=== PATIENT | female | born 2000 | race Caucasian/White ===

== ENCOUNTER 2022-07-12 08:31 | Outpatient (CLI) | payer SELFPAY | END 2022-07-12 08:32 | disposition home or self-care (01) | PROVIDERS: PCP Family Medicine; Visit Provider Family Medicine | DX: Z01.419 Encounter for gynecological examination (general) (routine) without abnormal findings (principal); Z13.1 Encounter for screening for diabetes mellitus; Z13.6 Encounter for screening for cardiovascular disorders | CPT/HCPCS: 80061; 82947 ==

== ENCOUNTER 2023-09-19 09:09 | Outpatient (CLI) | payer BC, SELFPAY ==
--- OUTSIDE RECORDS SUMMARY | 2023-09-19 09:11 | XMS_ITS | Clinical Summary ---
Author Organization [place] Address [address] [place] [address] Care Team Providers Care Reel Fed Printer Name Role Phone [facility] Primary Care Provider Radha Crain APRN DOCTORATE OF CHIROPRACTIC Unavailable Allergies No known active allergies Medications Medication Sig Dispensed Refills Start Date End Date Status Cetirizine HCl (ZYRTEC ALLERGY PO) Active acyclovir (ZOVIRAX) 200 MG capsule Take 200 mg by mouth every 12 hours Active norgestimate-ethinyl estradiol (ESTARYLLA) 0.25-35 MG-MCG tabletIndications:Encou nter for gynecological examination without abnormal finding TAKE 1 TABLET BY MOUTH DAILY 84 tablet 08/13/2023 Active Active Problems Problem Noted Date Diagnosed Date Onychomycosis 07/10/2016 Ankle sprain 04/09/2012 Abnormal gait 04/09/2012 Encounters Date Type Department Care Team Description 08/13/2023 MyC Medical Advice [facility] for [address] [phone] Rita Patel RN 08/13/2023 Refill M [address] [phone] Radha Crain APRN DOCTORATE OF CHIROPRACTIC Medication Refill 08/08/2023 MyC Medical Advice [address] [phone] Radha Crain APRN CNP 08/06/2023 8:45 AM CDT Lab [address] [place] [phone] Radha Crain APRN CNP Screening for tuberculosis 08/06/2023 Travel 07/31/2023 Telephone [place] [address] [place], [place] [phone] Radha Crain APRN CNP Patient Request 07/30/2023 MyC Medical Advice [place] [address] [place], [place] [phone] Radha Crain APRN CNP MyChart Communication 07/30/2023 Telephone [place] [address] [place] [phone] Radha Crain APRN CNP Forms from Last 3 Months Immunizations Name Administration Dates Next Due COVID-19 Monovalent Booster 18+ [facility] 02/18/2021 COVID-19 Vaccine (Dom) 07/08/2020 DTAP (<7y) 11/24/2003,10/18/1999 HEPATITIS A (PEDS 12M-18Y) 10/28/2013,11/05/2012 HPV Quadrivalent 10/28/2013,01/06/2013, 3 Hepatitis B, Peds 03/08/1999, 9,1998,05/11 Historical DTP/aP 1998,1998,05/11/18 99 MMR 11/24/2003,03/08/1999 Meningococcal ACWY (Menactra??) 11/05/2012 Meningococcal Mcv4 Conjugate,unspecified 05/10/2016 Pneumococcal (PCV 7) 03/19/2000,10/18/1999 Poliovirus, inactivated (IPV) 11/24/2003 ,1998,1998,05/11 TDAP (Adacel,Boostrix) 07/04/2022 TDAP Vaccine (Adacel) 01/04/2010 TDAP Vaccine (Boostrix) 05/10/2016 Varicella 01/01/2008,03/08/1999 Family History Medical History Relation Comments Hyperlipidemia Father Thyroid Disease Other Colon Cancer Paternal Grandfather Hyperlipidemia Paternal Grandfather Hyperlipidemia Paternal Grandmother Osteoporosis Paternal Grandmother Thyroid Disease Sister 1 Relation Status Comments Father Alive Maternal Grandfather Alive Maternal Grandmother Alive Mother Alive Other Paternal Grandfather Paternal Grandmother Sister 1 Alive Sister 2 Alive Social History Tobacco Use Types Packs/Day Years Used Date Smoking Tobacco: Never Smokeless Tobacco: Never Tobacco Cessation:Counseling Given: Not Answered Alcohol Use Standard Drinks/Week Comments No 0 (1 standard drink = 0.6 oz pur e alcohol) PHQ-2 Answer Date Recorded PHQ-2 Score 0 07/04/2022 Adolescent Education Answer Date Record ed Getting School Help Needed Not on file 01/15 Sex and Gender Information Value Date Recorded Sex Assigned at Female 07/03/2022 9:28 AM CDT Gender Identity Female 07/03/2022 9:28 AM CDT Sexual Orientation Straight 07/03/2022 9: 28 AM CDT Last Filed Vital Signs Vital Sign Reading Time Taken Comments Blood Pressure 118/62 07/04/2022 8:56 AM CDT Pulse 72 03/29/2020 2:51 PM MANGLE CATCHER Temperature - - Respiratory Rate - - Oxygen Saturation - - Inhaled Oxygen Concentration - - Weight 65.6 kg (144 lb 9.6 oz) 07/04/2022 8:56 A M CDT Height 163.8 cm (5' 4.5) 07/04/2022 8:56 AM CDT Body Mass Index 24.44 07/04/2022 8:56 AM CDT Plan of Treatment Health Maintenance Due Date Last Done Comments ADVANCE CARE PLANNING 1998 ANNUAL REVIEW OF HM ORDERS 1998 PHQ-2 (once per calendar year) 2023 07/04/2022, 07/04/2022, 04/04/2021, Additional history exists YEARLY PREVENTIVE VISIT 07/05/2023 07/05/19, 04/04/2021, 03/29/2020, Additional history exists PAP 07/04/2025 07/04/2022, 03/29/2020 DTAP/TDAP/TD IMMUNIZATION (9 - Td or Tdap) 07/04/2032 07/04/2022, 05/10/2016, 01/04/2010, Additional history exists HEPATITIS B IMMUNIZATION Completed 999, 1998, 1998, Additional history exists Pneumococcal Vaccine: Pediatrics (0 to 5 Years) and At-Risk Patients (6 to 64 Years) Aged Out 03/19/2000, 10/18/1999 No longer eligibl e based on patient's age to complete this topic IPV IMMUNIZATION Completed 11/24/2003, 05/1998, 1998, Additional history exists HPV IMMUNIZATION Completed 10/28/2013, 09/2012, 11/05/2012 MENINGITIS IMMUNIZATION Completed 05/10/2016, 11/05 CHLAMYDIA SCREENING Discontinued 07/04/2022, HEPATITIS C SCREENING Completed 07/04/2022 HIV SCREENING Completed 07/04/2022 COVID-19 Vaccine Completed 01/11/2023, , 07/08/2020 INFLUENZA VACCINE Completed 02/28/2023, 07/12/2022 RSV MONOCLONAL ANTIBODY Aged Out No l onger eligible based on patient's age to complete this topic Procedures Procedure Name Priority Date/Time Associated Diagnosis Comments QUANTIFERON-TB GOLD PLUS Routine 08/06/2023 9:02 AM CDT Screening for tuberculosis QUANTIFERON TB GOLD PLUS Routine 08/06/2023 9:02 AM CDT Screening for tuberculosis QUANTIFERON TB GOLD PLUS PURPLE TUBE Routine 08/06/2023 9:02 AM CDT Screening for tuberculosis QUANTIFERON TB GOLD PLUS YELLOW TUBE Routine 08/06/2023 9:02 AM CDT Screening for tuberculosis QUANTIFERON TB GOLD PLUS GREEN TUBE Routine 08/06/2023 9:02 AM CDT Screening for tuberculosis QUANTIFERON TB GOLD PLUS MATHEWS TUBE Routine 08/06/2023 9:02 AM CDT Screening for tuberculosis NEISSERIA GONORRHOEAE PCR Routine 07/04/2022 9:32 AM CDT Screening for STDs (sexually transmitted diseases) HIV ANTIGEN ANTIBODY COMBO Routine 07/04/2022 9:30 AM CDT Screening for HIV (human immunodeficiency virus) HEPATITIS C SCREEN REFLEX TO HCV RNA QUANT AND GENOTYPE Routine 07/04/2022 9:30 AM CDT Need for hepatitis C screening test GYNECOLOGIC CYTOLOGY Routine 07/04/2022 9:14 AM CDT Encntr for automobiles salesperson exam (general) (routine) w/o abn findings from Last 3 Months or Most Recently Relevant to Health Maintenance Results * Quantiferon TB Gold Plus (08/06/2023 9:02 AM CDT) Quantiferon-TB Gold Plus Negative Negative 08/07/2023 1:10 PM CDT [facility]END O Comment: No interferon gamma response to M.tuberculosis antigens was detected. Infection with M.tuberculosis is unlikely, however a single negative result does not exclude infection. In patients at high risk for infection, a second test should be considered in accordance with the 2017 ATS/IDSA/CDC Clinical Pract ice Guidelines for Diagnosis of Tuberculosis in Adults and Children TB1 Ag minus Nil Value 0.00 IU/mL 08/07/2023 1:10 PM CDT [facility]END [facility] TB2 Ag minus Nil Value 0.00 IU/mL 08/07/2023 1:10 PM CDT [facility]END O Mitogen minus Nil Result 9.99 IU/mL 08/07/2023 1:10 PM CDT [facility] C[facility]/PROT/END O Nil Result 0.01 IU/mL 08/07/2023 1:10 PM CDT SPECIALTY CORE/PROT/END O Blood BLOOD SPECIMEN / Unknown Venipuncture / Unknown 08/06/2023 9:02 AM CDT 08/06/2023 9:02 AM CDT Radha Crain APRN DOCTORATE OF CHIROPRACTIC LAB - MICRO G ENERAL ORDERABLES [facility]/PROT/ENDO [facility] Specialty Core/Prot/Endo [address] [facility] [address] [facility], [address] [place] [address] * Quantiferon TB Gold Plus Purple Tube (08/06/2023 9:02 AM CDT) Quantiferon Mitogen 10.00 IU/mL 08/07/2023 1:00 PM CDT SPECIALTY CORE/PROT/ENDO Blood BLOOD SPECIMEN / Unknown Venipuncture / Unknown 08/06/2023 9:02 AM CDT 08/06/2023 9:02 AM CDT Radha Crain HUSSAIN DOCTORATE OF CHIROPRACTIC LAB - MICRO G ENERAL ORDERABLES Performing Organization Address City/[facility]/ZIP Co de Phone Number SPECIALTY CORE/PROT/ENDO Specialty Core/Prot/Endo [address] [facility], [address] [place] [address] * Quantiferon TB Gold Plus Yellow Tube (08/06/2023 9:02 AM CDT) Quantiferon TB2 Tube 0.01 08/07/2023 1:00 PM CDT SPECIALTY CORE/PROT/ENDO Blood BLOOD SPECIMEN / Unknown Venipuncture / Unknown 08/06/2023 9:02 AM CDT 08/06/2023 9:02 AM CDT Radha Brownjorgeramirez HUSSAIN DOCTORATE OF CHIROPRACTIC LAB - MICRO G ENERAL ORDERABLES [facility] SPECIALTY CORE/PROT/ENDO Specialty Core/Prot/Endo [address] [facility], [address] * Quantiferon TB Gold Plus Green Tube (08/06/2023 9:02 AM CDT) Quantiferon TB1 Tube 0.01 IU/mL 08/07/2023 12:59 PM CDT SPECIALTY CORE/PROT/ENDO Blood BLOOD SPECIMEN / Unknown Venipuncture / Unknown 08/06/2023 9:02 AM CDT 08/06/2023 9:02 AM CDT Radha Crain HUSSAIN DOCTORATE OF CHIROPRACTIC LAB - MICRO G ENERAL ORDERABLES [facility] SPECIALTY CORE/PROT/ENDO Specialty Core/Prot/Endo [address] [facility], [address] * Quantiferon TB Gold Plus Mathews Tube (08/06/2023 9:02 AM CDT) Quantiferon Nil Tube 0.01 IU/mL 08/07/2023 12:59 PM CDT SPECIALTY CORE/PROT/ENDO Blood BLOOD SPECIMEN / Unknown Venipuncture / Unknown 08/06/2023 9:02 AM CDT 08/06/2023 9:02 AM CDT Radha Brownjorgeramirez STITCHER OPERATOR DOCTORATE OF CHIROPRACTIC LAB - MICRO G ENERAL ORDERABLES Performing Organization Address [facility]/ZIP Co de Phone Number SPECIALTY CORE/PROT/ENDO Specialty Core/Prot/Endo [address] [facility], [address] * NEISSERIA GONORRHOEA PCR (07/04/2022 9:32 AM CDT) Neisseria gonorrhoeae Negative Negative 07/05/2022 12:52 PM CDT [facility] Comment:Negative for N. gono rrhoeae rRNA by senior executive assistant mediated amplification. A negative result by senior executive assistant mediated amplification does not preclude the presence of C. trachomatis infection because results are dependent on proper and adequate collection, absence of inhibitors and sufficient rRNA to be detected. Swab VAGINAL STRUCTURE / Unknown Non-blood Collection / Unknown 07/04/2022 9:32 AM CDT 07/04/2022 12:32 PM CDT Radha Brownmarcus NIXON DOCTORATE OF CHIROPRACTIC LAB - MICRO G ENERAL ORDERABLES [facility] Inf. Diseases Diag. Lab [address] [facility], [address] [place] [address], [facility] [place] [phone] * HIV Antigen Antibody Combo (07/04/2022 9:30 AM CDT) HIV Antigen Antibody Combo Nonreactive Nonreactive 07/05/2022 10:18 AM CDT SPECIALTY CORE/PROT/EN DO Comment:HIV-1 p24 Ag & HIV-1 /HIV-2 Ab Not Detected Blood STRUCTURE OF LEFT UPPER LIMB / Unknown Venipuncture / Unknown 07/04/2022 9:30 AM CDT 07/04/2022 9:39 AM CDT Radha Crain APRN DOCTORATE OF CHIROPRACTIC LAB - BLOOD O RDERABLES UM SPECIALTY CORE/PROT/ENDO UM Specialty Core/Prot/Endo [address] [facility], [address] [place] [address], [facility] [place] [phone] * Hepatitis C Screen Reflex to HCV RNA Quant and Genotype (07/04/2022 9:30 AM CDT) Hepatitis C Antibody Nonreactive Nonreactive 07/05/2022 10:18 AM CDT SPECIALTY CORE/PROT/EN DO Blood STRUCTURE OF LEFT UPPER LIMB / Unknown Venipuncture / Unknown 07/04/2022 9:30 AM CDT 07/04/2022 9:39 AM CDT Narrative [facility] C[facility]/PROT/ENDO - 07/05/2022 10:18 AM CDT Assay performance characteristics have not been established for newborns, infants, and children. Radha Crain APRN DOCTORATE OF CHIROPRACTIC LAB - BLOOD O RDERABLES UM SPECIALTY CORE/PROT/ENDO Specialty Core/Prot/Endo [address] [facility], [address] [place] [address], [facility] [place] [phone] * Pap thin layer screen only - recommended age 21 - 24 years (07/04/2022 9:14 AM CDT) Interpretation Negative for Intraepithelial Lesion or Malignancy (NILM) 07/06/2022 2:38 PM CDT [facility] Comment Papanicolaou Test Limitations: Cervical cytology is a screening test with limited sensitivity, and regular screening is critical for cancer prevention. Pap tests are primarily effective for the diagnosis/prevent ion of squamous cell carcinoma, not adenocarcinoma or other cancers. 07/06/2022 2:38 PM CDT [facility] Specimen Adequacy Satisfactory for evaluation, endocervical/berrios sformation zone component present 07/06/2022 2:38 PM CDT [facility] Clinical Information none 07/06/2022 2:38 PM CDT [facility] Reflex Testing No 07/06/2022 2:38 PM CDT [facility] Previous Abnormal? No 07/06/2022 2:38 PM CDT [facility] Performing Labs The technical component of this testing was completed at [facility] 07/06/2022 2:38 PM CDT [facility] Brushing CERVIX UTERI STRUCTURE / Unknown Non-blood Collection / Unknown 07/04/2022 9:14 AM CDT 07/04/2022 12:32 PM CDT Radha Crain APRN [facility] Specialty Lab [address] [facility] [address], [address] [place] [address], [facility] [place] [phone] from Last 3 Months or Most Recently Relevant to Health Maintenance Care Teams Reel Fed Printer Relationship Specialty Start Date End Date Clinic, [facility] [address] [place] [phone] PCP - General 10/11/17 Radha Crain APRN [facility] [address] [place] [address] Assigned OBGYN Provider 07/08/22
--- OUTSIDE RECORDS SUMMARY | 2023-09-19 09:11 | XMS_ITS | Clinical Summary ---
Author Organization [facility] Address [place], [place] [address] Care Team Providers Care Fringing Machine Operator Name Role Phone Pcp, No Primary Care Provider Unavailabl e Allergies No known active allergies Medications Medication Sig Dispensed Refills Start Date End Date Status COVID-19 antigen test (Flowflex COVID-19 Ag Home Test) kit FOR HOME USE 4 Kit 03/16/2023 Active norgestimate-ethinyl estradiol, 0.25-35 mg-mcg, (Estarylla) 0.25-35 mg-mcg tablet Take 1 Tablet by mouth once daily. Active Sulfacetamide Sodium-Sulfur 10-5 % susp Apply topically to affected area(s) three times daily. Active multivitamin (MVI) tablet Take 1 Tablet by mouth once daily. Active omega-3/dha/epa/ala/v itamin D3 (maija-1-tsn-epa-ala- vit D3) 50 mg (25 mg- 25 mg)-100 unit chew Chew by mouth. Active Encounters Date Type Department Care Team Description 07/10/2023 8:40 AM CDT Office Visit [facility] [address] [facility] [address] [place] [address] Katelyn Hall DPM Follow Up (Follow up on left great toenail removal, procedure done on 06/11/23 ) 07/10/2023 Travel 07/05/2023 Nurse Triage [facility] [address] [place] [address] Chun Blas DPM Post-op Infection (possible) from Last 3 Months Social History Tobacco Use Types Packs/Day Years Used Date Smoking Tobacco: Never Smokeless Tobacco: Never Tobacco Cessation:Counseling Given: Not Answered Alcohol Use Standard Drinks/Week Comments Yes 0 (1 standard drink = 0.6 oz pur e alcohol) Sex and Gender Information Value Date Recorded Sex Assigned at Not on file Gender Identity Not on file Sexual Orientation Not on file Obstetrics History Plan of Treatment Health Maintenance Due Date Last Done Comments Tdap 2009 Depression screening for age 12+ 2010 HIV for age 15-65 2013 HPV series for age 9-26 (1 - 3-dose series) 2013 BMI (ht and wt on same day) for age 18+ 2016 Hepatitis C screening for ag e 18-79 2016 Tetanus booster 2018 Pap test for age 21-65 2019 Influenza for age 9-49 12/02/2023 COVID-19 vaccine series Completed 01/12/20 23, 07/08/2020 Pneumococcal series for age 6-64 Aged Out No longer eligible b ased on patient's age to complete this topic Care Teams Fringing Machine Operator Relationship Specialty Start Date End Date Pcp, No . PCP - General 06/11/23
--- OUTSIDE RECORDS SUMMARY | 2023-09-19 09:12 | XMS_ITS | Encounter Summary ---
Author Organization [facility] Address [address] [place] [address]. [place] [address] Care Team Providers Care Jde Developer Name Role Phone [facility] Primary Care Provider Radha Crain APRN HR MANAGER Unavailable [phone] Reason for Visit * Reason Onset Date Comments MyChart Communication 07/30/2023 Encounter Details Date Type Department Care Team (Latest Contact Info) Description 07/30/2023 MyC Medical Advice [facility] [place] [address] [facility] [employer] [address] [place] [phone] Radha Crain APRN HR MANAGER [address] [facility] [address] [place] [phone] MyChart Communication Social History Tobacco Use Types Packs/Day Years Used Date Smoking Tobacco: Never Smokeless Tobacco: Never Alcohol Use Standard Drinks/Week Comments No 0 [...] Orientation Straight 07/03/2022 9: 28 AM CDT documented as of this encounter Miscellaneous Notes * Telephone Encounter - Strangis, Patsy Robert - 07/30/2023 3:10 PM CDT Sent forms to patient's email. * Telephone Encounter - RomanaeusebioPatsy Robert - 07/30/2023 1:16 PM CDT Put form on providers desk to be completed on 07/30/2023. documented in this encounter Plan of Treatment Not on file documented as of this encounter Visit Diagnoses Not on filedocumented in this encounter Additional Health Concerns Assessment Noted Time PHQ-9 Depression Total Score: 0 07/05/19 9:00 AM CDT documented as of this encounter Care Teams Jde Developer Relationship Specialty Start Date End Date [facility], [facility] [address] [facility] [address] [place] [phone] PCP - General 10/11/17 Radha Crain APRN HR MANAGER [address] [place] [address] Assigned OBGYN Provider 07/08/22 documented as of this encounter
--- OUTSIDE RECORDS SUMMARY | 2023-09-19 09:12 | XMS_ITS | Referral Summary ---
Author Organization [place] Address [address] [place] [address] Care Team Providers Care Ceramic Chemist Name Role Phone [facility] Primary Care Provider Radha Crain APRN INSTRUCTOR INDUSTRIAL DESIGN Unavailable Encounters Date Type Department Care Team Description 08/13/2023 MyC Medical Advice [address] [place] [phone] Rita Patel RN 08/13/[address] [place] [phone] Radha Crain APRN INSTRUCTOR INDUSTRIAL DESIGN Medication Refill 08/08/2023 MyC Medical Advice [address] [place] [phone] Radha Crain APRN CNP 08/06/2023 Travel 08/06/2023 8:45 AM CDT Lab [place] [address] [place] [phone] Radha Crain APRN CNP Screening for tuberculosis 07/31/[address] [place] [phone] Radha Crain APRN CNP Patient Request 07/30/2023 MyC Medical Advice [facility] [address] [place] [phone] Radha Crain APRN CNP MyChart Communication 07/30/2023 Telephone [facility] [address] [place] [address] [address] [place] [phone] Radha Crain APRN CNP Forms from Last 3 Months Allergies No known active allergies Medications Medication [...] 07/10/2016 Ankle sprain 04/09/2012 Abnormal gait 04/09/2012 Immunizations Name Administration Dates Next Due COVID-19 Monovalent Booster 18+ (Moderna) 02/18/2021 COVID-19 Vaccine (Dom) 07/08/2020 DTAP (<7y) 11/24/2003,10/18/1999 HEPATITIS A (PEDS 12M-18Y) 10/28/2013,11/05/2012 HPV Quadrivalent 10/28/2013,01/06/2013, 3 Hepatitis B, Peds 03/08/1999, 9,1998,05/11 Historical DTP/aP 1998,1998,05/11/18 99 MMR 11/24/2003,03/08/1999 Meningococcal ACWY (Menactra??) 11/05/2012 Meningococcal Mcv4 Conjugate,unspecified 05/10/2016 Pneumococcal (PCV 7) 03/19/2000,10/18/1999 Poliovirus, inactivated (IPV) 11/24/2003 ,1998,1998,05/11 TDAP (Adacel,Boostrix) 07/04/2022 TDAP Vaccine (Adacel) 01/04/2010 TDAP Vaccine (Boostrix) 05/10/2016 Varicella 01/01/2008,03/08/1999 Social History Tobacco Use Types Packs/Day Years [...] AM CDT Pulse 72 03/29/2020 2:51 PM CHARGING BOARD OPERATOR Temperature - - Respiratory Rate - - Oxygen Saturation - - Inhaled Oxygen Concentration - - Weight 65.6 kg (144 lb 9.6 oz) 07/04/2022 8:56 A M CDT Height 163.8 cm (5' 4.5) 07/04/2022 8:56 AM CDT Body Mass Index 24.44 07/04/2022 8:56 AM CDT Plan of Treatment Not on file Procedures Procedure Name Priority Date/Time Associated Diagnosis [...] Routine 07/04/2022 9:14 AM CDT Encntr for field care coordinator exam (general) (routine) w/o abn findings from Last 3 Months or Most Recently Relevant to Health Maintenance Results * Quantiferon TB Gold Plus (08/06/2023 9:02 AM CDT) [facility] Quantiferon-TB Gold Plus Negative Negative 08/07/2023 1:10 [...] Result 0.01 IU/mL 08/07/2023 1:10 PM CDT UM SPECIALTY CORE/PROT/END O Blood BLOOD SPECIMEN / Unknown Venipuncture / Unknown 08/06/2023 9:02 AM CDT 08/06/2023 9:02 AM CDT Radha Brownjorgeramirez HUSSAIN INSTRUCTOR INDUSTRIAL DESIGN LAB - MICRO G ENERAL ORDERABLES UM SPECIALTY CORE/PROT/ENDO UM Specialty Core/Prot/Endo [address] [facility] [address] [facility], [address] * Quantiferon TB Gold Plus Purple Tube (08/06/2023 9:02 AM CDT) Quantiferon Mitogen 10.00 IU/mL 08/07/2023 1:00 PM CDT UM SPECIALTY CORE/PROT/ENDO Blood BLOOD SPECIMEN / Unknown Venipuncture / Unknown 08/06/2023 9:02 AM CDT 08/06/2023 9:02 AM CDT Radha Brownmarcus NIXON INSTRUCTOR INDUSTRIAL DESIGN LAB - MICRO G ENERAL ORDERABLES UM SPECIALTY CORE/PROT/ENDO Specialty Core/Prot/Endo 500 [facility], [address] * Quantiferon TB Gold Plus Yellow Tube (08/06/2023 9:02 AM CDT) Quantiferon TB2 Tube 0.01 08/07/2023 1:00 PM CDT UM SPECIALTY CORE/PROT/ENDO Blood BLOOD SPECIMEN / Unknown Venipuncture / Unknown 08/06/2023 9:02 AM CDT 08/06/2023 9:02 AM CDT Radha Brownmarcus NIXON INSTRUCTOR INDUSTRIAL DESIGN LAB - MICRO G ENERAL ORDERABLES UM SPECIALTY CORE/PROT/ENDO UM Specialty Core/Prot/Endo [address] [facility] [address] Building, [address] * Quantiferon TB Gold Plus Green Tube (08/06/2023 9:02 AM CDT) Quantiferon TB1 Tube 0.01 IU/mL 08/07/2023 12:59 PM CDT UM SPECIALTY CORE/PROT/ENDO Blood BLOOD SPECIMEN / Unknown Venipuncture / Unknown 08/06/2023 9:02 AM CDT 08/06/2023 9:02 AM CDT Radha Crain HUSSAIN INSTRUCTOR INDUSTRIAL DESIGN LAB - MICRO G ENERAL ORDERABLES UM SPECIALTY CORE/PROT/ENDO UM Specialty Core/Prot/Endo [address] [facility], [address] * Quantiferon TB Gold Plus Mathews Tube (08/06/2023 9:02 AM CDT) [facility] Quantiferon Nil Tube 0.01 IU/mL 08/07/2023 12:59 PM CDT SPECIALTY CORE/PROT/ENDO Blood BLOOD SPECIMEN / Unknown Venipuncture / Unknown 08/06/2023 9:02 AM CDT 08/06/2023 9:02 AM CDT Radha Crain HUSSAIN INSTRUCTOR INDUSTRIAL DESIGN LAB - MICRO G ENERAL ORDERABLES UM SPECIALTY CORE/PROT/ENDO Specialty Core/Prot/Endo [address] [facility], [address] * NEISSERIA GONORRHOEA PCR (07/04/2022 9:32 AM CDT) [facility] Neisseria gonorrhoeae Negative Negative 07/05/2022 12:52 PM CDT [facility] Comment:Negative for N. gono rrhoeae rRNA by executive vp mediated amplification. A negative result by executive vp mediated amplification does not preclude the presence of C. trachomatis infection because results are dependent on proper and adequate collection, absence of inhibitors and sufficient rRNA to be detected. Swab VAGINAL STRUCTURE / Unknown Non-blood Collection / Unknown 07/04/2022 9:32 AM CDT 07/04/2022 12:32 PM CDT Radha Cardona Paras GAS PLANT OPERATOR INSTRUCTOR INDUSTRIAL DESIGN LAB - MICRO G ENERAL ORDERABLES [facility] Inf. Diseases Diag. Lab 500 [facility], [address] [place] [address], [facility] [phone] * HIV Antigen Antibody Combo (07/04/2022 9:30 AM CDT) HIV Antigen Antibody Combo Nonreactive Nonreactive 07/05/2022 10:18 AM CDT SPECIALTY CORE/PROT/EN DO Comment:HIV-1 p24 Ag & HIV-1 /HIV-2 Ab Not Detected Blood STRUCTURE OF LEFT UPPER LIMB / Unknown Venipuncture / Unknown 07/04/2022 9:30 AM CDT 07/04/2022 9:39 AM CDT Radha Cardona Paras MEDINAN INSTRUCTOR INDUSTRIAL DESIGN LAB - BLOOD O RDERABLES UM SPECIALTY CORE/PROT/ENDO Specialty Core/Prot/Endo 500 [facility], [address] [address], [facility] [phone] * Hepatitis C Screen Reflex to HCV RNA Quant and Genotype (07/04/2022 9:30 AM CDT) Hepatitis C Antibody Nonreactive Nonreactive 07/05/2022 10:18 AM CDT UM SPECIALTY CORE/PROT/EN DO Blood STRUCTURE OF LEFT UPPER LIMB / Unknown Venipuncture / Unknown 07/04/2022 9:30 AM CDT 07/04/2022 9:39 AM CDT Narrative UM SPECIALTY CORE/PROT/ENDO - 07/05/2022 10:18 AM CDT Assay performance characteristics have not been established for newborns, infants, and children. Radha Cardona Paras NIXON INSTRUCTOR INDUSTRIAL DESIGN LAB - BLOOD O RDERABLES UM SPECIALTY CORE/PROT/ENDO UM Specialty Core/Prot/Endo [address] [facility] [address] Building, [address] [place], [place] [address] [phone] * Pap thin layer screen only - [...] component of this testing was completed at [facility] 07/06/2022 2:38 PM CDT SPECIALTY LABS Brushing CERVIX UTERI STRUCTURE / Unknown Non-blood Collection / Unknown 07/04/2022 9:14 AM CDT 07/04/2022 12:32 PM CDT Radha AMOS SPECIALTY LABS UM Specialty Lab [address] [facility], [address] [place] [address], [facility] [phone] from Last 3 Months or Most Recently Relevant to Health Maintenance Care Teams Ceramic Chemist Relationship Specialty Start Date End Date Clinic, [facility] Women [facility] [address] [facility] [address] [place] [phone] PCP - General 10/11/17 Radha Crain APRN [facility] [address] [facility] [address] [place] [address] Assigned OBGYN Provider 07/08/22
--- OUTSIDE RECORDS SUMMARY | 2023-09-19 09:12 | XMS_ITS | Encounter Summary ---
Author Organization [place] Address [address] [place] [address] Care Team Providers Care Cloth Beamer Name Role Phone [facility] Primary Care Provider Erica Parks APRN CNM Unavailable Iesha Chadwick STAGE TECHNICIAN CNM Unavailable Unava ilable Radha Crain STAGE TECHNICIAN AUTO PAINTER HELPER Unavailable Reason for Visit * Reason Comments Medication Refill Encounter Details Date Type Department Care Team (Late st Contact Info) Description 03/23/[address] [facility] [place] [phone] Kecia Pearson MD [address] [place] [address] [place] [address] Medication Refill Social History Tobacco Use Types Packs/Day Years Used Date Smoking Tobacco: Never Assessed Sex and Gender Information Value Date Recorded Sex Assigned at Female 07/03/2022 9:28 AM CDT Gender Identity Female 07/03/2022 9:28 AM CDT Sexual Orientation Straight 07/03/2022 9: 28 AM CDT documented as of this encounter Miscellaneous Notes * Telephone Encounter - Shayy Dennis - 04/22/2013 8:12 AM CST Not seen at [facility] pt. EKEEPING/LAUNDRY SUPERVISOR documented in this encounter Plan of Treatment Not on file documented as of this encounter Visit Diagnoses Not on filedocumented in this encounter Care Teams Cloth Beamer Relationship Specialty Start Date End Date Clinic, [facility] Women [facility] [address] [place] [address] [place] [phone] PCP - General 10/11/17 Erica Parks APRN CNM [facility] [address] [place] [address] [place] [phone] Assigned OBGYN Provider 04/04/20 2 Iesha Chadwick, STAGE TECHNICIAN CNM Assigned OBGYN Provider 04/10/21 07/07/22 Radha Crain APRN AUTO PAINTER HELPER [address] [place] [address] [place] [phone] Assigned OBGYN Provider 07/08/22 documented as of this encounter
--- OUTSIDE RECORDS SUMMARY | 2023-09-19 09:12 | XMS_ITS | Encounter Summary ---
Author Organization [place] Address [address] [place] [address]. [place] [address] Care Team Providers Care Research Methodologist Name Role Phone [facility] Primary Care Provider Radha Crain APRN HAND CULTIVATOR Unavailable [phone] Encounter Details Date Type Department Care Team (Late st Contact Info) Description 08/08/2023 [facility] [address] [facility] 100 [place] [phone] Radha Crain APRN HAND CULTIVATOR [address] [facility] 100 [place] [address] Social History Tobacco Use Types Packs/Day Years [...] encounter Miscellaneous Notes * Telephone Encounter - Risa Easley - 08/09/2023 11:00 AM CDT Forms updated/signed Emailed to patient * Telephone Encounter - Risa Easley - 08/08/2023 12:14 PM CDT Forms printed and given to Radha Mays to update/sign documented in this encounter Plan of Treatment Not on file documented as of this encounter Visit Diagnoses Not on filedocumented in this encounter Additional Health Concerns Assessment Noted Time PHQ-9 Depression Total Score: 0 07/05/19 9:00 AM CDT documented as of this encounter Care Teams Research Methodologist Relationship Specialty Start Date End Date Clinic, [facility] [address] [facility] [address] [place] [place] [phone] PCP - General 10/11/17 Radha Crain APRN HAND CULTIVATOR [address] [place] [address] [place] [place] [address] Assigned OBGYN Provider 07/08/22 documented as of this encounter
--- OUTSIDE RECORDS SUMMARY | 2023-09-19 09:12 | XMS_ITS | Encounter Summary ---
Author Organization [place] Address [address] [place] [address] Care Team Providers Care Graphic Pre Press Trades Worker Name Role Phone [facility] Primary Care Provider Radha Crain APRN YARD CALLER Unavailable [phone] Encounter Details Date Type Department Care Team (Late st Contact Info) Description 08/13/2023 [facility] Medical Advice [facility] [address] [place] [address] 100 [place] [phone] Rita Patel RN Social History Tobacco Use Types Packs/Day Years [...] AM CDT documented as of this encounter Plan of Treatment Not on file documented as of this encounter Visit Diagnoses Not on filedocumented in this encounter Additional Health Concerns Assessment Noted Time PHQ-9 Depression Total Score: 0 07/05/19 9:00 AM CDT documented as of this encounter Care Teams Graphic Pre Press Trades Worker Relationship Specialty Start Date End Date Clinic, [facility] [address] [place] [phone] PCP - General 10/11/17 Radha Crain APRN YARD CALLER [address] [place] [address] Assigned OBGYN Provider 07/08/22 documented as of this encounter
--- OUTSIDE RECORDS SUMMARY | 2023-09-19 09:12 | XMS_ITS | Encounter Summary ---
Author Organization [place] Address [address] [place] [address]. [place] [address] Care Team Providers Care Chro Name Role Phone [facility], [facility] Primary Care Provider Radha Crain APRN HOLLOW HANDLE BENCH WORKER Unavailable Reason for Visit * Reason Onset Date Comments Forms 07/30/2023 Encounter Details Date Type Department Care Team (Late st Contact Info) Description 07/30/[address] [facility] 6525 [facility] [address] [place] [phone] Radha Crain APRN HOLLOW HANDLE BENCH WORKER 6525 [facility] [address] [place] [address] Forms Social History Tobacco Use Types Packs/Day Years [...] encounter Miscellaneous Notes * Telephone Encounter - Radha Guajardo, RN - 07/30/2023 8:56 AM CDT Called pt and can complete her form for school. She will send forms and UPDATED immunization record so we can update the immunizations as well and then complete form - this will all be done by mychart Pt verbalized understanding, in agreement with plan, and voiced no further questions. 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 She has the form and wondering if she can have the provider sign off on it. Please call her back. Thank you. Action Taken: Other: obgyn Travel Screening: Not Applicable documented in this encounter Plan of Treatment Not on file documented as of this encounter Visit Diagnoses Not on filedocumented in this encounter Additional Health Concerns Assessment Noted Time PHQ-9 Depression Total Score: 0 07/05/19 23 9:00 AM CDT documented as of this encounter Care Teams Chro Relationship Specialty Start Date End Date Clinic, [facility] Women [facility] [address] [place] [phone] PCP - General 10/11/17 Radha Crain APRN HOLLOW HANDLE BENCH WORKER [address] [place] [address] [place] [address] Assigned OBGYN Provider 07/08/22 documented as of this encounter
--- OUTSIDE RECORDS SUMMARY | 2023-09-19 09:12 | XMS_ITS | Encounter Summary ---
Author Organization [place] Address [address] [place] [address]. [place] [address] Care Team Providers Care Pediatric Immunologist Name Role Phone [facility] [place] Primary Care Provider Radha Crain APRN NIGHT GUARD Unavailable Encounter Details Date Type Department Care Team (Latest Contact Info) Description 08/06/2023 Travel Social History Tobacco Use Types Packs/Day Years [...] documented as of this encounter Care Teams Pediatric Immunologist Relationship Specialty Start Date End Date [facility], [facility] [place] [address] [place] [address] [place] [phone] PCP - General 10/11/17 Radha Crain APRN NIGHT GUARD [address] [facility] [address] [place] [address] Assigned OBGYN Provider 07/08/22 documented as of this encounter
--- OUTSIDE RECORDS SUMMARY | 2023-09-19 09:12 | XMS_ITS | Encounter Summary ---
Author Organization [place] Address [address] [place] [address]. [place] [address] Care Team Providers Care Operations Logistics Analyst Name Role Phone [facility], [facility] Primary Care Provider Radha Crain APRN GEARCASE ASSEMBLER Unavailable Reason for Visit * Reason Onset Date Comments Patient Request 07/31/2023 Encounter Details Date Type Department Care Team (Late st Contact Info) Description 07/31/2023 Telephone [facility] 6525 [facility] 100 [place] [phone] Radha Crain APRN GEARCASE ASSEMBLER 6525 [facility] 100 [place] [phone] Patient Request Social History Tobacco Use Types Packs/Day Years [...] Miscellaneous Notes * Telephone Encounter - Radha Guajardo RN - 07/31/2023 9:30 AM CDT Informed pt lab ordered and scheduled lab only visit. Pt verbalized understanding, in agreement with plan, and voiced no further questions. Radha Guajardo RN on 07/31/2023 at 9:32 AM * Telephone Encounter - Radha Crain APRN CNP - 07/31/2023 8:59 AM CDT TB order placed. * Telephone Encounter - Cammy Martinez RN - 07/31/2023 8:21 AM CDT Pt needs repeat TB blood test for school Last annual 07/[address]? Routing pt mychart message to provider to advise. [place] Martinez RN on 07/31/2023 at 8:22 AM * Telephone Encounter - Hiral Lamb - 07/31/2023 7:49 AM CDT [facility] Phone Message May a detailed message be left on voicemail: yes Reason for Call: Other: Patient is wondering if she can get a lab order for another TB test for school. Please reach out. Thank you Action Taken: Message routed to: [facility] Travel Screening: Not Applicable documented in this encounter Plan of Treatment Not on file documented as of this encounter Visit Diagnoses Diagnosis Screening for tuberculosis- Primary Screening examination for pulmonary tuberculosis documented in this encounter Additional Health Concerns Assessment Noted Time PHQ-9 Depression Total Score: 0 07/05/19 23 9:00 AM CDT documented as of this encounter Care Teams Operations Logistics Analyst Relationship Specialty Start Date End Date [facility] [address] [place] [address] [place] [phone] PCP - General 10/11/17 Radha Crain APRN GEARCASE ASSEMBLER [address] [place] [address] Assigned OBGYN Provider 07/08/22 documented as of this encounter
--- OUTSIDE RECORDS SUMMARY | 2023-09-19 09:12 | XMS_ITS | Encounter Summary ---
Author Organization [place] Address [address] [place] [address]. [place] [address] Care Team Providers Care Employee Relations Advisor Name Role Phone [facility], [facility] Primary Care Provider Radha Crain APRN CERAMIC RESTORER Unavailable Encounter Details Date Type Department Care Team (Late st Contact Info) Description 08/06/2023 8:45 AM CDT Lab [facility] 6525 [facility] 100 [place] [phone] Radha Crain APRN CERAMIC RESTORER 6525 [facility] 100 [place] [address] Screening for tuberculosis Social History Tobacco Use Types Packs/Day Years [...] on file documented as of this encounter Procedures Procedure Name Priority Date/Time Associated Diagnosis Comments QUANTIFERON TB GOLD PLUS Routine 08/06/2023 9:02 [...] 08/06/2023 9:02 AM CDT Screening for tuberculosis QUANTIFERON-TB GOLD PLUS Routine 08/06/2023 9:02 AM CDT Screening for tuberculosis documented in this encounter Results * Quantiferon TB Gold Plus (08/06/2023 9:02 AM CDT) [facility] Quantiferon-TB Gold Plus Negative Negative 08/07/2023 1:10 PM CDT SPECIALTY CORE/PROT/END O Comment: No interferon gamma [...] Value 0.00 IU/mL 08/07/2023 1:10 PM CDT SPECIALTY CORE/PROT/END O TB2 Ag minus Nil Value 0.00 IU/mL 08/07/2023 1:10 PM CDT UM SPECIALTY CORE/PROT/END O Mitogen minus Nil Result 9.99 IU/mL 08/07/2023 1:10 PM CDT SPECIALTY CORE/PROT/END O Nil Result 0.01 IU/mL 08/07/2023 1:10 PM CDT SPECIALTY CORE/PROT/END O Blood BLOOD SPECIMEN / Unknown Venipuncture / Unknown 08/06/2023 9:02 AM CDT 08/06/2023 9:02 AM CDT Radha Crain HUSSAIN CERAMIC RESTORER LAB - MICRO G ENERAL ORDERABLES UM SPECIALTY CORE/PROT/ENDO UM Specialty Core/Prot/Endo 500 [facility] Unit [facility], [address] * Quantiferon TB Gold Plus Purple Tube (08/06/2023 9:02 AM CDT) Quantiferon Mitogen 10.00 IU/mL 08/07/2023 1:00 PM CDT UM SPECIALTY CORE/PROT/ENDO Blood BLOOD SPECIMEN / Unknown Venipuncture / Unknown 08/06/2023 9:02 AM CDT 08/06/2023 9:02 AM CDT Radha Crain HUSSAIN CERAMIC RESTORER LAB - MICRO G ENERAL ORDERABLES UM SPECIALTY CORE/PROT/ENDO Specialty Core/Prot/Endo 500 [facility], [address] * Quantiferon TB Gold Plus Yellow Tube (08/06/2023 9:02 AM CDT) Quantiferon TB2 Tube 0.01 08/07/2023 1:00 PM CDT SPECIALTY CORE/PROT/ENDO Blood BLOOD SPECIMEN / Unknown Venipuncture / Unknown 08/06/2023 9:02 AM CDT 08/06/2023 9:02 AM CDT Radha Crain HUSSAIN CERAMIC RESTORER LAB - MICRO G ENERAL ORDERABLES UM SPECIALTY CORE/PROT/ENDO UM Specialty Core/Prot/Endo 500 [facility] Unit [facility], [address] * Quantiferon TB Gold Plus Green Tube (08/06/2023 9:02 AM CDT) Quantiferon TB1 Tube 0.01 IU/mL 08/07/2023 12:59 PM CDT UM SPECIALTY CORE/PROT/ENDO Blood BLOOD SPECIMEN / Unknown Venipuncture / Unknown 08/06/2023 9:02 AM CDT 08/06/2023 9:02 AM CDT Radha Dulcebassem Crain APRN CERAMIC RESTORER LAB - MICRO G ENERAL ORDERABLES UM SPECIALTY CORE/PROT/ENDO UM Specialty Core/Prot/Endo 500 [facility], [address] * Quantiferon TB Gold Plus Mathews Tube (08/06/2023 9:02 AM CDT) Quantiferon Nil Tube 0.01 IU/mL 08/07/2023 12:59 PM CDT UM SPECIALTY CORE/PROT/ENDO Blood BLOOD SPECIMEN / Unknown Venipuncture / Unknown 08/06/2023 9:02 AM CDT 08/06/2023 9:02 AM CDT Radha Crain APRN CERAMIC RESTORER LAB - MICRO G ENERAL ORDERABLES UM SPECIALTY CORE/PROT/ENDO UM Specialty Core/Prot/Endo 500 [facility], [address] documented in this encounter Visit Diagnoses Diagnosis Screening for tuberculosis Screening examination for pulmonary tuberculosis documented in this encounter Additional Health Concerns Assessment Noted Time PHQ-9 Depression Total Score: 0 07/05/19 23 9:00 AM CDT documented as of this encounter Care Teams Employee Relations Advisor Relationship Specialty Start Date End Date [facility], [facility] Women [facility] [address] [place] [phone] PCP - General 10/11/17 Radha Crain APRN CERAMIC RESTORER [address] [place] [phone] Assigned OBGYN Provider 07/08/22 documented as of this encounter
--- OUTSIDE RECORDS SUMMARY | 2023-09-19 09:12 | XMS_ITS | Encounter Summary ---
Author Organization [place] Address [address] [place] [id number] Care Team Providers Care Industrial Services Worker Name Role Phone [facility] Primary Care Provider Erica Parks APRN CNM Unavailable Iesha Chadwick CRYSTAL GROWING TECHNICIAN CNM Unavailable Unava ilable Radha Crain CRYSTAL GROWING TECHNICIAN PIER WORKER Unavailable [phone] Encounter Details Date Type Department Care Team (Late st Contact Info) Description 06/22/2020 [facility] [place] Medical Advice [address] [phone] Janene Coy, SUZY Social History Tobacco Use Types Packs/Day Years Used Date Smoking Tobacco: Never Smokeless Tobacco: Never Alcohol Use Standard Drinks/Week Comments No 0 (1 standard drink = 0.6 oz pur e alcohol) PHQ-2 Answer Date Recorded PHQ-2 Score 1 03/29/2020 Sex and Gender Information Value Date Recorded [...] Assessment Noted Time PHQ-9 Depression Total Score: 2 03/29/20 20 3:01 PM BIN CLEANER documented as of this encounter Care Teams Industrial Services Worker Relationship Specialty Start Date End Date Clinic, [facility] [place] [facility] [address] [place] [address] [place] [phone] PCP - General 10/11/17 Erica Parks APRN CNM [facility] [address] [place] [address] Assigned OBGYN Provider 04/04/20 2 Iesha Chadwick APRN CNM Assigned OBGYN Provider 04/10/21 07/07/22 Radha Crain APRN PIER WORKER [address] [place] [id number] Assigned OBGYN Provider 07/08/22 documented as of this encounter
--- OUTSIDE RECORDS SUMMARY | 2023-09-19 09:12 | XMS_ITS | Encounter Summary ---
Author Organization [place] Address [address] [place] [address]. [place] [address] Care Team Providers Care Chief Airline Radio Operator Name Role Phone [facility], [facility] Primary Care Provider Radha Crain APRN SANITARIAN Unavailable Reason for Visit * Reason Comments Medication Refill Encounter Details Date Type Department Care Team (Late st Contact Info) Description 08/13/2023 Refill [facility] [address] [facility] [address] [place] [phone] Radha Crain APRN SANITARIAN [address] [facility] [address] [place] [address] Medication Refill Social History Tobacco Use Types [...] encounter Miscellaneous Notes * Telephone Encounter - Rita Patel RN - 08/13/2023 11:05 AM CDT Requested Prescriptions Pending Prescriptions Disp Refills ESTARYLLA 0.25-35 MG-MCG tablet [Pharmacy Med Name: ESTARYLLA TABLETS 28S] 84 tablet 2 Sig: TAKE 1 TABLET BY MOUTH DAILY Contraceptives Protocol Failed - 08/13/2023 11:03 AM Failed - Recent (12 mo) or future (30 days) visit within the authorizing provider's specialty The patient must have completed an in-person or virtual visit within the past 12 months or has a future visit scheduled within the next 90 days with the authorizing provider???s specialty. Urgent care and e-visits do not quality as an office visit for this protocol. Failed - Medication indicated for associated diagnosis Medication is associated with one or more of the following diagnoses: Hyperthyroidism Disorder of the thyroid gland Thyrotoxicosis Thyroid storm Thyroid eye disease Passed - Patient is not a current smoker if age is 35 or older Passed - Medication is active on med list Passed - No active on record Passed - No positive test in past 12 months Last Written Prescription Date: 12/11/22 Last Fill Quantity: 84, # refills: 2 Last office visit: 07/04/22 with Radha Crain NP ; last virtual visit: Visit date not found with prescribing provider: Radha Crain NP Future Office Visit: NONE Rx approved for 1 time refill. Pt overdue for annual - needs appt for additional refills [employer] message sent for pt to schedule appt. Rita Patel RN on 08/13/2023 at 11:10 AM documented in this encounter Plan of Treatment Not on file documented as of this encounter Visit Diagnoses Diagnosis Encounter for gynecological examination without abnormal finding Routine gynecological examination documented in this encounter Additional Health Concerns Assessment Noted Time PHQ-9 Depression Total Score: 0 07/05/19 9:00 AM CDT documented as of this encounter Care Teams Chief Airline Radio Operator Relationship Specialty Start Date End Date [facility], [facility] Women [place] [address] [address] [facility] [address] [place] [phone] PCP - General 10/11/17 Radha Crain APRN SANITARIAN [address] [facility] [address] [place], [place] [id number] Assigned OBGYN Provider 07/08/22 documented as of this encounter
[2023-09-19 14:23] LABS: Chlamydia DNA Amplified* NOT DETECTED (No Detected); GC DNA Amplified* NOT DETECTED (No Detected)
== END 2023-09-19 09:10 | disposition home or self-care (01) ==
LOC: NFLDUCREF 09:10
PROVIDERS: PCP Family Medicine; Visit Provider Nurse Practitioner Family
DX: R30.0 Dysuria (principal); B96.20 Unspecified Escherichia coli [E. coli] as the cause of diseases classified elsewhere; Z11.3 Encounter for screening for infections with a predominantly sexual mode of transmission
CPT/HCPCS: 87086; 87186; 87491; 87591